=== PATIENT | female | born 1935 | race Caucasian/White ===

== ENCOUNTER → 2016-04-20 | Outpatient (CLI) | payer OTHER, BC | LOC: CIMAGING 14:13 | PROVIDERS: ATTEND Internal Medicine Critical Care Medicine | DX: R91.1 Solitary pulmonary nodule (principal); I25.83 Coronary atherosclerosis due to lipid rich plaque; Z87.891 Personal history of nicotine dependence | CPT/HCPCS: 71250-PO ==

== ENCOUNTER 2016-10-10 12:36 | Day surgery (SDC) | payer OTHER, BC ==
--- NOTE | 2016-10-10 08:25 | PDGENHP ---
History and Physical - Chief Complaint Right knee pain - History of Present Illness 80y/o F c/o persistent R knee pain. Pt states the pain started a couple of months ago, and pain is worse on the posterior aspect. Pt reports a feeling on instability, and feeling like it will hyperextend. History Information - Allergies/Home Medication List Allergies/Adverse Reactions: codeine Allergy (Verified 10/09/16 17:10) Other-Enter Comments Home Medications: Aspirin [Aspirin 81mg (OTC)] 81 mg PO DAILY 03/08/14 [Last Taken 10/09/16 10:00] Valsartan [Diovan (RX)] 160 mg PO DAILY 03/08/14 [Last Taken 03/08/14 21:00] Venlafaxine Xr [Effexor Xr] 150 mg PO DAILY 03/08/14 [Last Taken 03/09/14 07:30] Glimepiride 08/27/15 [Last Taken Unknown] Vitamin D3 10/09/16 [Last Taken Unknown] I have personally reviewed and updated: family history, medical history, social history, surgical history - Past Medical History COPD, diabetes type 2, hypertension, hyperlipidemia, pulmonary embolism Additional medical history: Gout, obesity, osteopenia, peripheral neuropathy - Surgical History Reports: appendectomy, cholecystectomy Additional surgical history: laminectomy, Villareal's neuroma excision - Family History Positive for: cancer (Father at age of 82 secondary to prostate cancer) , stroke (mother at age of 89 with hemorrhagic stroke) - Social History Smoking Status: Heavy smoker (1 PPD) Tobacco Use: Cigarettes Alcohol Use: None Drug Use: None Review of Systems ROS: 10pt was reviewed & negative except for what was stated in HPI & below Physical Exam Physical Exam: R knee posterolateral joint line tenderness. Mild tenderness along the medial joint line. Knee is stable to posterior drawer, and valgus-varus stressing. Moderate click felt with Gaviota's laterally. Minimal retropatellar crepitus. Trace effusion, no increased warmth. Lab Data & Imaging Review Visualized and Interpreted imaging results: Yes Interpretation: MRI: This confirms the suspicion of a medial meniscus tear. 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 Assessment & Plan Assessment: Right knee medial meniscus tear Plan: Right knee arthroscopy, partial medial meniscectomy and chondroplasty
[2016-10-10] MEDS ORDERED: ceFAZolin 2 GM/DEXTROSE 100 ML IV ONE (13:08)
[2016-10-10] MEDS ORDERED: LR 1,000 ML IV ONE (13:26)
[2016-10-10 13:30] VITALS: PULSE 90; RESP 18
[2016-10-10] MEDS ORDERED: LIDOCAINE 1% 5 ML SDV IF ONE (13:30)
--- NOTE | 2016-10-10 13:54 | PDHPUP ---
History & Physical Update H&P update statement: This history and physical update is based on an assessment of the patient which was completed after admission or registration (within 24 hours), but prior to the surgery/procedure. H&P update: H&P reviewed & patient examined, no change in patient's condition since H&P completed
[2016-10-10] MEDS ORDERED: BUPIVACAINE/EPI 0.5% 30 ML SDV ONE (14:05)
--- NOTE | 2016-10-10 14:08 | PDANEPAE ---
ANE Past Medical History - Cardiovascular History Hx Hypertension: Yes Hx Arrhythmias: No Hx Chest Pain: No Hx Coronary Artery / Peripheral Vascular Disease: Yes Hx CHF / Valvular Disease: No Hx Palpitations: No Cardiovascular History Comment: PVD L foot. EKG 10-08-16 WNL. - Pulmonary History Hx COPD: Yes Hx Asthma/Reactive Airway Disease: No Hx Recent Upper Respiratory Infection: No Hx Oxygen in Use at Home: Yes Hx Sleep Apnea: No Sleep Apnea Screening Result - Last Documented: Negative Pulmonary History Comment: Pulmanary emboli 12/25. Put on warfarin. Dr Coleman D/C 'd Warfarin . - Neurologic History Hx Cerebrovascular Accident: No Hx Seizures: No Hx Dementia: No Neurologic History Comment: Diabetic neuropathy both feet. - Endocrine History Hx Diabetes: Yes Endocrine History Comment: Type 2 since 2010. Diet controlled plus Glimepiride. - Renal History Hx Renal Disorders: No - Liver History Hx Hepatic Disorders: No - Neurological & Psychiatric Hx Hx Neurological and Psychiatric Disorders: Yes Neurological / Psychiatric History Comment: depression-med. - Cancer History Hx Cancer: No - Congenital Disorder History Hx Congenital Disorders: No - GI History Hx Gastrointestinal Disorders: Yes Gastrointestinal History Comment: Ulcer distant past. - Other Health History Other Health History: R knee pain- torn meniscus due to fall 09-07-16. Missing all upper teeth-upper denture. - Chronic Pain History Chronic Pain: Yes (bilat ft/R knee) - Surgical History Prior Surgeries: 1957-api. 1959-abd granuloma removal. 1988-cervical lami. 1991- GB. 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 ANE Review of Systems - Exercise capacity METS (RN): 3 METS ANE Patient History - Allergies Allergies/Adverse Reactions: codeine Allergy (Verified 10/09/16 17:10) Other-Enter Comments - Home Medications Home Medications: Aspirin [Aspirin 81mg (OTC)] 81 mg PO DAILY 03/08/14 [Last Taken 10/09/16 10:00] Valsartan [Diovan (RX)] 160 mg PO DAILY 03/08/14 [Last Taken 03/08/14 21:00] Venlafaxine Xr [Effexor Xr] 150 mg PO DAILY 03/08/14 [Last Taken 03/09/14 07:30] Glimepiride 08/27/15 [Last Taken Unknown] Vitamin D3 10/09/16 [Last Taken Unknown] - NPO status NPO Since - Liquids (Date): 10/10/16 NPO Since - Liquids (Time): 10:00 NPO Since - Solids (Date): 10/09/16 NPO Since - Solids (Time): 21:00 - Anes Hx Anes Hx: no prior problems - Smoking Hx Smoking Status: Heavy smoker (1 PPD) - Alcohol Use Alcohol Use: None - Family Anes Hx Family Hx Anesthesia Complications: no ANE Labs/Vital Signs - Vital Signs Blood Pressure: 153/91 Heart Rate: 90 Respiratory Rate: 18 O2 Sat (%): 93 Height: 162.56 cm Weight: 90.718 kg ANE Physical Exam - Airway Mallampati Score: Class 2 - ASA Status ASA Status: III ANE Anesthesia Plan Anesthesia Plan: GA w LMA
[2016-10-10] MEDS ORDERED: fentaNYL 100 MCG/2 ML INJ ONE ×2 (14:10→15:57)
[2016-10-10] MEDS ORDERED: MIDAZOLAM 2 MG/2 ML VIAL ONE (14:10)
[2016-10-10] MEDS ORDERED: PROPOFOL 200 MG/20 ML VIAL ONE (14:12)
[2016-10-10] MEDS ORDERED: METOCLOPRAMIDE 10 MG/2 ML VIAL ONE (14:15)
[2016-10-10] MEDS ORDERED: ONDANSETRON 4 MG/2 ML VIAL ONE (14:15)
[2016-10-10] MEDS ORDERED: LIDOCAINE 2% JELLY 5 ML TUBE ONE (14:15)
[2016-10-10] MEDS ORDERED: PROMETHAZINE HCL 25 MG/ML INJ IVP PRN (15:21)
[2016-10-10] MEDS ORDERED: HYDROCODONE/APAP 5/325 TAB PO PRN (15:21)
[2016-10-10] MEDS ORDERED: LR 500 ML IV PRN (15:21)
[2016-10-10] MEDS ORDERED: NALOXONE HCL 0.4 MG/ML INJ IVP PRN (15:21)
--- NOTE | 2016-10-10 15:23 | POSTANESTH ---
Post Anesthetic Evaluation Cardiovascular Status: Similar to Pre-Op Cond Respiratory Status: Similar to Pre-op Cond. Level of Consciousness/Mental Status: Can Participate in Eval Pain Control: Adequate, Prn Tx Ordered Nausea/Vomiting Control: Adequate, Prn Tx Ordered
[2016-10-10] MEDS: fentaNYL 100 MCG/2 ML INJ IVP PRN ×2 (15:59→16:13)
[2016-10-10] MEDS ORDERED: HYDROCODONE/APAP 5/325 TAB ONE (16:44)
[2016-10-10 18:23] VITALS: BP 99/66; O2SAT 91
--- NOTE | 2016-10-11 02:59 | GOP ---
[f rep st] OPERATIVE REPORT DATE OF OPERATION: 10/10/2016 SURGEON: Kurtis Neal MD ANESTHESIA: General. PREOPERATIVE DIAGNOSIS: 1. Right knee medial meniscus tear. 2. Patellofemoral chondromalacia. 3. Mild arthritis, medial compartment. POSTOPERATIVE DIAGNOSIS: 1. Right knee medial meniscus tear. 2. Patellofemoral chondromalacia. 3. Mild arthritis, medial compartment. PROCEDURE PERFORMED: 1. Arthroscopy, right knee, with partial medial meniscectomy. 2. Arthroscopy, right knee chondroplasty, patellofemoral articulation, medial femoral condyle. FINDINGS: The patient had a complex tear of the medial meniscus. There was chondral surface damage , grade 2-degree, in the patellofemoral articulation and medial compartment. The lateral meniscus w as intact, but had very slight mesial edge fraying. The cruciate ligaments were intact. The fat pa d had a bit of a plica extending into the medial side. Our attention was directed to the medial meniscus tear. The medial meniscus was resected using a se vani of straight and angled up-biting duckbill punches, followed by contouring of the rim with the 4 resector shaver. Lateral meniscus was then probed. The mesial edge fraying was lightly dressed wi th the shaver. Scope was then placed through the medial portal. The instruments were brought in la terally. The anterior edge of the medial meniscus tear was then contoured further with the angled d uckbill punch. The resector shaver was then brought in through the lateral portal and the anterior aspect of the medial meniscus tear was further resected and contoured. Debris was then removed in t he suprapatellar area and medial and lateral gutters. Scope was placed posteromedially and no furth er meniscal capsular separation was noted. We subsequent extracted the arthroscope. Approximately 20 cc of 0.5% Marcaine with epinephrine solution was placed intra-articularly, several cc's into eac h entry portal. The entry portals were closed with 4 Ethilon sutures. Sterile compression dressing was applied. The patient tolerated the procedure well and was transported to recovery room in stab le condition. No operative complications. DESCRIPTION OF PROCEDURE: The patient was taken to the operating room, administered general anesthe og, placed in supine position. The right lower extremity was positioned in a leg to, and prepp ed and draped in normal sterile fashion. Esmarch exsanguination performed, followed by elevation of thigh cuff to 300 mmHg pressure. An arthroscope was inserted through an anterolateral incision. S uperolateral incision was made, followed by insertion of the outflow cannula. An anteromedial incis ion was made, followed by insertion of the hook probe. Systematic exploration of the joint was perf ormed. COMPLICATIONS: None. /[id number]/MODL
== END 2016-10-10 18:42 | disposition home or self-care (01) ==
LOC: FSGY 12:36
PROVIDERS: ATTEND Orthopaedic Surgery Sports Medicine
PROC: 0SBC4ZZ Excision of Right Knee Joint, Percutaneous Endoscopic Approach (ICD-10-PCS; principal; 2016-10-10 14:30)
DX: S83.231A Complex tear of medial meniscus, current injury, right knee, initial encounter (principal); W19.XXXA Unspecified fall, initial encounter; M22.41 Chondromalacia patellae, right knee; M17.11 Unilateral primary osteoarthritis, right knee; I10 Essential (primary) hypertension; E78.5 Hyperlipidemia, unspecified; E11.9 Type 2 diabetes mellitus without complications; J44.9 Chronic obstructive pulmonary disease, unspecified; Z86.711 Personal history of pulmonary embolism; F17.210 Nicotine dependence, cigarettes, uncomplicated
CPT/HCPCS: J0690; J2250; J2405; J2704; J2765; J3010

== ENCOUNTER → 2017-04-23 | Outpatient (CLI) | payer OTHER, BC | LOC: CIMAGING 15:01 | PROVIDERS: ATTEND Internal Medicine | DX: M79.605 Pain in left leg (principal); M79.89 Other specified soft tissue disorders | CPT/HCPCS: 93971-PO ==

== ENCOUNTER → 2017-05-21 | Outpatient (CLI) | payer OTHER, BC | LOC: CIMAGING 13:15 | PROVIDERS: ATTEND Internal Medicine Critical Care Medicine | DX: R91.8 Other nonspecific abnormal finding of lung field (principal); F17.200 Nicotine dependence, unspecified, uncomplicated | CPT/HCPCS: 71250-PO ==

== ENCOUNTER → 2018-04-21 | Outpatient (CLI) | payer OTHER, BC | LOC: CIMAGING 15:08 | PROVIDERS: ATTEND Podiatrist | DX: L97.521 Non-pressure chronic ulcer of other part of left foot limited to breakdown of skin (principal); E11.621 Type 2 diabetes mellitus with foot ulcer; Z89.422 Acquired absence of other left toe(s) | CPT/HCPCS: 73630-PO ==